=== PATIENT | male | born 1940 | race Caucasian/White ===

== ENCOUNTER 2018-11-07 15:53 | Inpatient (IN) ==
[2018-11-07 16:35] LABS: Basophils % 0.3 % (0.0-0.8); Eosinophils % 0.1 % (0.00-10.9); Hematocrit 48.7 VOL% (42.0-52.0); Hemoglobin 16.4 GM/DL (14.0-18.0); Immature Granulocytes % 0.8 %; Immature Granulocytes Absolute 0.12 #; Lymphocytes # 0.9 10*3/uL (1.4-4.0); Lymphocytes % 5.8 % (21.2-54.2); Mean Corpuscular HGB Conc 33.7 GM/DL (32-36); Mean Corpuscular Volume 97.6 FL (87-102); Mean Platelet Volume 9.8 FL (9.6-12.0); Monocytes % 6.1 % (1.7-12.7); Neutrophils % 86.9 % (38.7-73.9); Platelet Count 156 T/CUMM (130-400); Red Blood Count 4.99 MC/CUMM (3.8-5.5); Red Cell Distribution Width 12.7 % (9.3-17.3); White Blood Count 15.8 T/CUMM (4-12)
[2018-11-07] MEDS ORDERED: levETIRAcetam 500 MG/5 ML VIAL IV ONE (16:44)
[2018-11-07 17:01] LABS: Alanine Aminotransferase 41 U/L (16-61); Albumin 4.2 G/DL (3.4-5.0); Alkaline Phosphatase 92 U/L (45-117); Aspartate Amino Transferase 30 U/L (0-37); Blood Urea Nitrogen 15 MG/DL (7-18); Calcium 9.4 MG/DL (8.5-10.1); Glucose 110 MG/DL (74-106); Osmolality,Calculated 278.5 MOS/KG (273-304); Total Protein 8.2 G/DL (6.4-8.3)
[2018-11-07 17:31] LABS: Troponin I 0.064 NG/ML (0.00-0.045)
[2018-11-07] MEDS ORDERED: ACETAMINOPHEN 325 MG TABLET PO PRN (20:00)
[2018-11-07] MEDS ORDERED: MORPHINE 4 MG/1 ML VIAL IV PRN (20:00)
[2018-11-07] MEDS ORDERED: ONDANSETRON 4 MG/2 ML VIAL IV PRN (20:00)
[2018-11-07] MEDS: ENOXAPARIN 40 MG/0.4 ML SYRINGE SUBCUT SCH (20:36)
[2018-11-07] MEDS: DOCUSATE SODIUM 100 MG CAPSULE PO SCH (20:37)
[2018-11-07] MEDS: levETIRAcetam 500 MG TABLET PO SCH (20:37)
[2018-11-07] MEDS: SODIUM CHLORIDE 0.9% 1,000 ML IV SCH (20:37)
[2018-11-08 01:02] LABS: Apearance,Urine Slightly Hazy (Clear); Bacteria,Urine Occasional /HPF (Few); Bilirubin,Urine Negative (Negative); Blood, Urine Large mg/dL (Negative); Glucose,Urine (UA) Negative (Negative); Hyaline Casts,Urine 77 /LPF (0-3); Ketones,Urine Negative (Negative); Mucus,Urine Occasional /LPF (Occasional); Nitrite,Urine Negative (Negative); Protein,Urine Negative; RBC,Urine 4 /HPF (0-4); Squamous Epithelial Cell,Urine Occasional /HPF (0-10); Urine Color Yellow (Yellow); Urine Specific Gravity 1.006 (1.001-1.035); Urine Urobilinogen < 2.0 EU/DL (0.2-1.0); WBC,Urine 1 /HPF (0-6)
[2018-11-08 01:05] LABS: Barbiturates Screen,Urine Negative (Negative); Benzodiazepines Screen,Urine Negative (Negative); Cannabinoid Screen,Urine Negative (Negative); Opiate Screen,Urine Negative (Negative); Phencyclidine Screen,Urine Negative (Negative)
[2018-11-08 05:37] LABS: Basophils # 0.1 10*3/uL (0.0-0.2); Basophils % 0.4 % (0.0-0.8); Eosinophils % 0.1 % (0.00-10.9); Hematocrit 42.1 VOL% (42.0-52.0); Hemoglobin 14.6 GM/DL (14.0-18.0); Immature Granulocytes % 0.5 %; Immature Granulocytes Absolute 0.06 #; Lymphocytes # 1.4 10*3/uL (1.4-4.0); Lymphocytes % 10.8 % (21.2-54.2); Mean Corpuscular HGB Conc 34.7 GM/DL (32-36); Mean Corpuscular Volume 97.7 FL (87-102); Mean Platelet Volume 10.3 FL (9.6-12.0); Monocytes % 9.8 % (1.7-12.7); Neutrophils % 78.4 % (38.7-73.9); Platelet Count 140 T/CUMM (130-400); Red Blood Count 4.31 MC/CUMM (3.8-5.5); Red Cell Distribution Width 12.9 % (9.3-17.3); White Blood Count 13.3 T/CUMM (4-12)
[2018-11-08 06:09] LABS: Albumin 3.4 G/DL (3.4-5.0); Bilirubin,Total 1.1 MG/DL (0.2-1.0); Calcium 8.3 MG/DL (8.5-10.1); Osmolality,Calculated 280.4 MOS/KG (273-304); Total Protein 6.5 G/DL (6.4-8.3)
[2018-11-08] MEDS: ATORVASTATIN 80 MG TABLET PO SCH (08:41)
[2018-11-08] MEDS: levETIRAcetam 500 MG TABLET PO SCH ×2 (08:41→20:50)
[2018-11-08] MEDS: DOCUSATE SODIUM 100 MG CAPSULE PO SCH ×2 (08:41→20:50)
[2018-11-08] MEDS: PANTOPRAZOLE 40 MG TABLET PO SCH (08:41)
[2018-11-08] MEDS: amLODIPine 5 MG TABLET PO SCH (08:41)
[2018-11-08] MEDS: ASPIRIN EC 81 MG TABLET PO SCH (08:42)
[2018-11-08] MEDS: SODIUM CHLORIDE 0.9% 1,000 ML IV SCH (11:16)
[2018-11-08] MEDS: ENOXAPARIN 40 MG/0.4 ML SYRINGE SUBCUT SCH (20:50)
[2018-11-09] MEDS: SODIUM CHLORIDE 0.9% 1,000 ML IV SCH ×2 (03:00→18:18)
[2018-11-09 05:32] LABS: Basophils % 0.5 % (0.0-0.8); Eosinophils # 0.1 10*3/uL (0.0-0.87); Eosinophils % 1.6 % (0.00-10.9); Hematocrit 40.8 VOL% (42.0-52.0); Hemoglobin 13.7 GM/DL (14.0-18.0); Immature Granulocytes % 0.4 %; Immature Granulocytes Absolute 0.03 #; Lymphocytes # 1.7 10*3/uL (1.4-4.0); Mean Corpuscular HGB Conc 33.6 GM/DL (32-36); Mean Corpuscular Volume 99.8 FL (87-102); Mean Platelet Volume 9.9 FL (9.6-12.0); Monocytes % 8.9 % (1.7-12.7); Neutrophils % 67.6 % (38.7-73.9); Platelet Count 125 T/CUMM (130-400); Red Blood Count 4.09 MC/CUMM (3.8-5.5); Red Cell Distribution Width 12.9 % (9.3-17.3); White Blood Count 8.3 T/CUMM (4-12)
[2018-11-09 05:54] LABS: Calcium 7.9 MG/DL (8.5-10.1)
[2018-11-09] MEDS: levETIRAcetam 500 MG TABLET PO SCH ×2 (11:06→20:25)
[2018-11-09] MEDS: ATORVASTATIN 80 MG TABLET PO SCH (11:06)
[2018-11-09] MEDS: amLODIPine 5 MG TABLET PO SCH (11:06)
[2018-11-09] MEDS: PANTOPRAZOLE 40 MG TABLET PO SCH (11:07)
[2018-11-09] MEDS: DOCUSATE SODIUM 100 MG CAPSULE PO SCH ×2 (11:07→20:26)
[2018-11-09] MEDS: ASPIRIN EC 81 MG TABLET PO SCH (11:07)
[2018-11-09] MEDS: ENOXAPARIN 40 MG/0.4 ML SYRINGE SUBCUT SCH (20:26)
[2018-11-09] MEDS ORDERED: METOPROLOL TARTRATE 25 MG TABLET PO SCH (21:00)
[2018-11-10] MEDS ORDERED: METOPROLOL SUCCINATE XL 25 MG TABLET PO SCH (09:00)
[2018-11-10] MEDS: PANTOPRAZOLE 40 MG TABLET PO SCH (09:45)
[2018-11-10] MEDS: DOCUSATE SODIUM 100 MG CAPSULE PO SCH (09:45)
[2018-11-10] MEDS: levETIRAcetam 500 MG TABLET PO SCH (09:46)
[2018-11-10] MEDS: ASPIRIN EC 81 MG TABLET PO SCH (09:46)
[2018-11-10] MEDS: ATORVASTATIN 80 MG TABLET PO SCH (09:46)
[2018-11-10] MEDS: amLODIPine 5 MG TABLET PO SCH (09:46)
[2018-11-10 12:10] VITALS: BP 144/72
== END 2018-11-10 16:15 | disposition home or self-care (01) | DRG 101 ==
LOC: EDUNIT# → N.ED 15:53 → N.2E 18:22
PROVIDERS: ADMIT Family Medicine; ATTEND Family Medicine